=== PATIENT | female | born 1975 | race Asian ===

== ENCOUNTER 2017-12-22 09:41 | Emergency (ER) | payer OTHER ==
[~2017-12-22] VITALS: Ht 162.6 cm; Wt 54.9 kg
[2017-12-22 09:44] VITALS: Ht 162.6 cm; Wt 54.9 kg
[2017-12-22 11:26] VITALS: BP 128/75
== END 2017-12-22 11:26 | disposition left against medical advice (07) ==
LOC: ED 09:41
DX: T18.128A Food in esophagus causing other injury, initial encounter (principal); X58.XXXA Exposure to other specified factors, initial encounter; Y93.89 Activity, other specified; Y92.89 Other specified places as the place of occurrence of the external cause; Y99.8 Other external cause status